=== PATIENT | male | born 1965 | race African-American/Black ===

== ENCOUNTER 2018-05-07 01:16 | Emergency (ER) | payer OTHER ==
[~2018-05-07] VITALS: Ht 177.8 cm; Wt 96.0 kg
[2018-05-07 01:28] VITALS: BP 152/86
== END 2018-05-07 03:57 | disposition home or self-care (01) ==
LOC: ER 01:16
DX: J40 Bronchitis, not specified as acute or chronic (principal); E11.9 Type 2 diabetes mellitus without complications; F17.200 Nicotine dependence, unspecified, uncomplicated
CPT/HCPCS: 71045; 99283